=== PATIENT | female | born 1935 | race Asian ===

== ENCOUNTER 2020-11-09 13:55 | Emergency (ER) | payer OTHER, MEDICARE, SELFPAY ==
[2020-11-09 14:36] VITALS: BP 195/66; BP 201/94; PULSE 100; PULSE 104; RESP 14; TEMP 36.9; O2SAT 98; O2SAT 99; BMI 21.3
--- NOTE | 2020-11-09 14:46 | ECG_ITS ---
Test Reason : CHESTPRESS Blood Pressure : / mmHG Vent. Rate : 097 BPM Atrial Rate : 097 BPM P-R Int : 134 ms QRS Dur : 134 ms QT Int : 396 ms P-R-T Axes : 060 -25 131 degrees QTc Int : 502 ms Normal sinus rhythm Left bundle branch block Abnormal ECG No previous ECGs available Referred By: Jaymie Lyon Electronically Signed By:Peter Mckeon
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
[2020-11-09 16:00] VITALS: BP 189/79; PULSE 95; RESP 16; TEMP 36.6; O2SAT 98
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
== END 2020-11-09 16:30 | disposition home or self-care (01) ==
PROVIDERS: Emergency Provider Emergency Medicine; PCP Internal Medicine
DX: S20.213A Contusion of bilateral front wall of thorax, initial encounter (principal); S09.90XA Unspecified injury of head, initial encounter; R07.89 Other chest pain; V43.52XA Car driver injured in collision with other type car in traffic accident, initial encounter; Y93.9 Activity, unspecified; Y92.410 Unspecified street and highway as the place of occurrence of the external cause; Y99.9 Unspecified external cause status
CPT/HCPCS: 71046; 93005; 99283